=== PATIENT | female | born 1985 | race Caucasian/White ===

== ENCOUNTER 2020-03-23 19:32 | Inpatient (IN) | payer BC ==
--- NOTE | 2020-03-23 20:38 | HP ---
COWS - Scale Resting Pulse: 1= SC 81-100 Sweatin= Chills/Flushing Restless Observation: 1= Difficult to Sit Still Pupil Size: 0= Normal to Room Light Bone or Joint Aches: 2= Severe Diffuse Aches Runny Nose/ Eye Tearin= Nasal Congestion GI Upset > 30mins: 2= Nausea/Diarrhea Tremor Observation: 1= Tremor [place], Not Seen Yawning Observation: 1= 1-2x During Session Anxiety or Irritability: 1=Feels Anxious/Irritable Goose Flesh Skin: 0=Smooth Skin COWS Score: 11 CIWA Score - Admission Criteria OASAS Guidelines: Admission for Medically Managed Detox: Requires at least one of the followin. CIWA greater than 12 2. Seizures within the past 24 hours 3. Delirium tremens within the past 24 hours 4. Hallucinations within the past 24 hours 5. Acute intervention needed for co occurring medical disorder 6. Acute intervention needed for co occurring psychiatric disorder 7. Severe withdrawal that cannot be handled at a lower level of care (continued vomiting, continued diarrhea, abnormal vital signs) requiring intravenous medication and/or fluids 8. Admitting History and Physical - Admission Chief Complaint: I want to get off drugs. History Source: Patient Limitations to Obtaining History: No Limitations - Past Medical History Pulmonary: Yes: Asthma ...LMP: 09/21/19 (unsure of days.) ...: No Psych: Yes: Anxiety (on zanax 8mg daily.), Depression Musculoskeletal: Yes: Chronic low back pain - Past Surgical History Past Surgical History: Yes: None - Smoking History Smoking history: Current every day smoker Aproximately how many cigarettes per day: 20 - Alcohol/Substance Use Hx Alcohol Use: No History of Substance Use: reports: Cocaine, Heroin, Marijuana, Prescription Date of Last Use: 03/23/20 - Social History Usual Living Arrangement: Yes: Alone Do you think of yourself as: Straight/Heterosexual ADL: Independent Occupation: unemployed History of Recent Travel: No Admission ROS S - HPI Chief Complaint: I need help to get off drugs. Allergies/Adverse Reactions: Allergies Allergy/AdvReac Type Severity Reaction Status Date / Time No Known Allergies Allergy Verified 03/23/20 20:38 History of Present Illness: Patient is a 34 y/o female with history of Asthma, Back pain, Benzo, Heroin, Cannabis and cocaine use disorder. Presents to [facility] for heroin detox. 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 Started using Heroin since age 27, currently using up to 2 bundles daily IV. Last use was today. Also uses a couple of bumps of Cocaine daily, last use was today. Exam Limitations: No Limitations - Ebola screening Have you traveled outside of the country in the last 21 days: No Have you had contact with anyone from an Ebola affected area: No Have you been sick,other than usual withdrawal symptoms: No Do you have a fever: No - Review of Systems Constitutional: Chills, Night Sweats EENT: reports: Nose Congestion Respiratory: reports: No Symptoms reported Cardiac: reports: No Symptoms Reported GI: reports: No Symptoms Reported : reports: No Symptoms Reported Musculoskeletal: reports: No Symptoms Reported, Back Pain, Joint Pain Integumentary: reports: No Symptoms Reported Neuro: reports: No Symptoms reported Endocrine: reports: No Symptoms Reported Hematology: reports: No Symptoms Reported Psychiatric: reports: No Sypmtoms Reported, Agitated, Anxious Other Systems: Reviewed and Negative Patient History - Patient Medical History Hx Anemia: No Hx Asthma: Yes (uses Albuterol pump as needed.) Hx Cancer: No Hx Cardiac Disorders: No Hx Congestive Heart Failure: No Hx Hypertension: No Hx Hypercholesterolemia: No Hx Pacemaker: No HX Cerebrovascular Accident: No Hx Seizures: Yes (Last seizure was in January when she ran out of medications.) Hx Dementia: No Hx Diabetes: No Hx Gastrointestinal Disorders: No Hx Liver Disease: No Hx Genitourinary Disorders: No Hx Sexually Transmitted Disorders: No - Patient Surgical History Past Surgical History: No Hx Neurologic Surgery: No Hx Cataract Extraction: No Hx Cardiac Surgery: No Hx Lung Surgery: No Hx Breast Surgery: No Hx Breast Biopsy: No Hx Abdominal Surgery: No Hx Appendectomy: No Hx Cholecystectomy: No Hx Genitourinary Surgery: No Hx Section: No Hx Orthopedic Surgery: No Hx Hysterectomy: No Anesthesia Reaction: No - PPD History Previous Implant?: Yes Documented Results: Negative w/o proof Implanted On Prior R Admission?: Yes PPD to be Administered?: Yes - Reproductive History Patient is a Female of Child Bearing Age (11 -55 yrs old): Yes Last Menstrual Period: 09/21/19 (6 months ago.) Patient : No - Smoking Cessation Smoking history: Current every day smoker Have you smoked in the past 12 months: Yes Aproximately how many cigarettes per day: 20 Hx Chewing Tobacco Use: No Initiated information on smoking cessation: Yes 'Breaking Loose' booklet given: 03/23/20 - Substance & Tx. History Hx Alcohol Use: No Hx Substance Use: Yes Substance Use Type: Cocaine, Heroin Hx Substance Use Treatment: Yes (was in detox in [place] a year ago.) - Substances abused Alprazolam (Xanax) Substance route: Oral Frequency: Daily Amount used: 4-2mg tabs Age of first use: 28 Date of last use: 03/23/20 Cocaine Substance route: Injection Frequency: Daily Amount used: a couple of bumps Age of first use: 28 Date of last use: 03/23/20 Heroin Substance route: Inhalation Frequency: Daily Amount used: 2 bundles Age of first use: 28 Date of last use: 03/23/20 Admission Physical Exam [facility] - Physical General Appearance: Yes: Mild Distress, Tremorous, Irritable, Anxious HEENTM: Yes: Within Normal Limits Respiratory: Yes: Within Normal Limits Neck: Yes: Within Normal Limits Breast: Yes: Breast Exam Deferred Cardiology: Yes: Within Normal Limits Abdominal: Yes: Within Normal Limits Genitourinary: Yes: Within Normal Limits Back: Yes: Within Normal Limits Musculoskeletal: Yes: Back pain Extremities: Yes: Within Normal Limits, Normal Capillary Refill Neurological: Yes: Within Normal Limits, Fully Oriented, Alert Integumentary: Yes: Within Normal Limits Lymphatic: Yes: Within Normal Limits - Diagnostic (1) Opioid dependence with withdrawal Current Visit: Yes Status: Acute (2) Cocaine dependence Current Visit: Yes Status: Chronic (3) Nicotine dependence Current Visit: Yes Status: Chronic (4) Asthma Current Visit: Yes Status: Chronic (5) Chronic back pain Current Visit: Yes Status: Chronic Cleared for Admission [facility] - Detox or Rehab [facility] Level of Care: Medically Managed Detox Regimen/Protocol: Methadone Claeared for Rehab Admission: No Screened but not Admitted - Documentation of Visit Screened but not Admitted: No Breathalyzer - Breathalyzer Breathalyzer: 0 Urine Drug Screen - Test Device Lot number: [id number] Expiration date: 10/20/21 - Control Is test valid?: Yes - Results Drug screen NEGATIVE: No Urine drug screen results: THC-Marijuana, ROBERT-Cocaine, FEN-Fentanyl, MOP- Opiates, BZO-Benzodiazepines Inpatient Rehab Admission - Rehab Decision to Admit Inpatient rehab admission?: No
[2020-03-23] MEDS ORDERED: cloNIDine HCL 0.1 MG TABLET PO PRN (20:39)
[2020-03-23] MEDS ORDERED: hydrOXYzine PAMOATE 25 MG CAPSULE (FP) PO PRN (20:39)
[2020-03-23] MEDS ORDERED: IBUPROFEN 400 MG TABLET (FP) PO PRN (20:39)
[2020-03-23] MEDS ORDERED: NALOXONE HCL 0.4 MG/ML VIAL IM PRN (20:39)
[2020-03-23] MEDS ORDERED: BISMUTH SUBSALICYLATE 524 MG/30 ML UD PO PRN (20:39)
[2020-03-23] MEDS ORDERED: MAG HYDROX/AL HYDROX/SIMETH 30 ML UNIT-DOSE CUP PO PRN (20:39)
[2020-03-23] MEDS ORDERED: METHOCARBAMOL 500 MG TABLET PO PRN (20:39)
[2020-03-23] MEDS ORDERED: MAGNESIUM CITRATE 300 ML BOTTLE PO PRN (20:39)
[2020-03-23] MEDS ORDERED: NICOTINE POLACRILEX 2 MG GUM BUC PRN (20:39)
[2020-03-23] MEDS ORDERED: guaiFENesin 200 MG/10 ML 10 ML UNIT-DOSE CUPS PO PRN (20:39)
[2020-03-23] MEDS ORDERED: METHADONE HCL 10 MG TABLET (FOR DETOX USE ONLY) PO ONE (20:39)
[2020-03-23] MEDS ORDERED: MENTHOL/PHENOL 1 EACH UD MM PRN (20:39)
[2020-03-23] MEDS ORDERED: MAGNESIUM HYDROX 2400MG/30ML ORAL SUSPENSION 30 ML CUP PO PRN (20:39)
[2020-03-23] MEDS ORDERED: ONDANSETRON *ODT* 4 MG TABLET SL PRN (20:39)
[2020-03-23] MEDS ORDERED: ACETAMINOPHEN 325 MG TABLET (FP) PO PRN ×2 (20:39)
[2020-03-23 21:03] VITALS: BMI 17.2
[2020-03-23] MEDS ORDERED: ALBUTEROL SO4 HFA INHALER IH PRN (21:27)
[2020-03-23] MEDS ORDERED: THIAMINE HCL 100 MG TABLET (FP) PO SCH (22:00)
[2020-03-23] MEDS ORDERED: MELATONIN 5 MG TABLETS PO SCH (22:00)
[2020-03-24] MEDS ORDERED: METHADONE HCL 10 MG TABLET (FOR DETOX USE ONLY) ONE (08:46)
[2020-03-24] MEDS ORDERED: METHADONE HCL 5 MG TABLET (FOR DETOX USE ONLY) ONE (08:46)
[2020-03-24 09:24] VITALS: BP 107/74; PULSE 64; TEMP 97.8
[2020-03-24] MEDS ORDERED: diazePAM 5 MG TABLET PO PRN (09:54)
[2020-03-24] MEDS ORDERED: ALBUTEROL SO4 HFA INHALER IH PRN (09:55)
[2020-03-24] MEDS ORDERED: PRENATAL VITAMINS W/ FOLIC ACID TABLET (FP) PO SCH (10:00)
[2020-03-24] MEDS ORDERED: NICOTINE 7 MG/24 HOURS TOPICAL PATCH TD SCH (10:00)
[2020-03-24] MEDS ORDERED: METHADONE (DETOX) 20 MG, METHADONE (DETOX) 5 MG PO ONE (10:00)
[2020-03-24 10:58] LABS: HEMATOCRIT 39.4 % (32.4-45.2); HEMOGLOBIN 12.9 GM/dL (10.7-15.3); MCH 29.1 pg (25.7-33.7); MCHC 32.8 g/dl (32.0-36.0); MEAN CELL VOLUME 88.7 fl (80-96); MEAN PLT VOLUME 7.6 fl (7.5-11.1); PLATELET COUNT 260 K/MM3 (134-434); RBC 4.44 M/mm3 (3.60-5.2); RDW 14.4 % (11.6-15.6); WHITE BLOOD COUNT 6.2 K/mm3 (4.0-10.0)
[2020-03-24 11:17] LABS: ALBUMIN 3.6 g/dl (3.4-5.0); CALCIUM 8.9 mg/dL (8.5-10.1); POTASSIUM 4.3 mmol/L (3.5-5.1)
--- NOTE | 2020-03-24 11:20 | DS ---
[facility] Detox Discharge Summary Admission Date: 03/23/20 Discharge Date: 03/24/20 - History Present History: Cocaine Dependence, Opioid Dependence, Sedative Dependence Additional Comments: alert,oriented x 3 lung clear on auscultation bilaterally abdomen soft,no pain,no tenderness no swelling of extremities ambulation on the unit patient did not want to complete treatment,the high risks of relapsing explained,signed release against medical advice, the risks of leaving including seizure,permanent disability,and addressed,patient under stood advise to call 911 if not feeling well narcan nasal spray e prescription to patient's pharmacy Pertinent Past History: asthma nicotine dependence anxiety,depression,insomnia chronic low back pain - Physical Exam Results Vital Signs: Vital Signs Temperature 97.8 F 03/24/20 08:59 Pulse Rate 64 03/24/20 08:59 Respiratory Rate 18 03/24/20 08:59 Blood Pressure 107/74 03/24/20 08:59 O2 Sat by Pulse Oximetry (%) 99 03/24/20 06:32 Pertinent Admission Physical Exam Findings: withdrawal signs and symptom Laboratory Last Values WBC 6.2 K/mm3 (4.0-10.0) 03/24/20 08:45 RBC 4.44 M/mm3 (3.60-5.2) 03/24/20 08:45 Hgb 12.9 GM/dL (10.7-15.3) 03/24/20 08:45 Hct 39.4 % (32.4-45.2) 03/24/20 08:45 MCV 88.7 fl (80-96) 03/24/20 08:45 MCH 29.1 pg (25.7-33.7) 03/24/20 08:45 MCHC 32.8 g/dl (32.0-36.0) 03/24/20 08:45 RDW 14.4 % (11.6-15.6) 03/24/20 08:45 Plt Count 260 K/MM3 (134-434) 03/24/20 08:45 MPV 7.6 fl (7.5-11.1) 03/24/20 08:45 Sodium 142 mmol/L (136-145) 03/24/20 08:45 Potassium 4.3 mmol/L (3.5-5.1) 03/24/20 08:45 Chloride 108 mmol/L (98-107) H 09/10/20 08:45 Carbon Dioxide 28 mmol/L (21-32) 03/24/20 08:45 Anion Gap 6 MMOL/L (8-16) L 03/24/20 08:45 BUN 12.0 mg/dL (7-18) 03/24/20 08:45 Creatinine 0.7 mg/dL (0.55-1.3) 03/24/20 08:45 Est GFR (CKD-EPI)AfAm 129.19 03/24/20 08:45 Est GFR (CKD-EPI)NonAf 111.47 03/24/20 08:45 Random Glucose 101 mg/dL (74-106) 03/24/20 08:45 Calcium 8.9 mg/dL (8.5-10.1) 03/24/20 08:45 Total Bilirubin 1.1 mg/dL (0.2-1) H 03/24/20 08:45 AST 10 U/L (15-37) L 03/24/20 08:45 ALT 21 U/L (13-61) 03/24/20 08:45 Alkaline Phosphatase 54 U/L (45-117) 03/24/20 08:45 Total Protein 6.4 g/dl (6.4-8.2) 03/24/20 08:45 Albumin 3.6 g/dl (3.4-5.0) 03/24/20 08:45 POC Urine HCG, Qual Negative 03/23/20 20:17 Syphilis Serology Non-reactive (NONREACTIVE) 03/24/20 08:45 Vital Signs Temperature 97.8 F 03/24/20 08:59 Pulse Rate 64 03/24/20 08:59 Respiratory Rate 18 03/24/20 08:59 Blood Pressure 107/74 03/24/20 08:59 O2 Sat by Pulse Oximetry (%) 99 03/24/20 06:32 - Medication Discharge Medications: Ambulatory Orders Albuterol Sulfate [Albuterol Sulfate Hfa] 2 puff IH Q4HWA PRN 03/23/20 Alprazolam [Xanax] 2 mg PO BID 03/23/20 Zolpidem Tartrate [Ambien] 10 mg PO HS 03/23/20 Naloxone HCl [Narcan] 4 mg NS ASDIR #1 spray 09/10/20 - Diagnosis (1) Opioid dependence with withdrawal Status: Acute (2) Asthma Status: Chronic (3) Chronic back pain Status: Chronic (4) Cocaine dependence Status: Chronic (5) Nicotine dependence Status: Chronic (6) Insomnia secondary to depression with anxiety Status: Acute - AMA Did Patient Leave Against Medical Advice: Yes
--- NOTE | 2020-03-24 11:20 | PN ---
S CIWA - CIWA Score Nausea/Vomitin Muscle Tremors: 3 Anxiety: 3 Agitation: 3 Paroxysmal Sweats: 1-Minimal Palms Moist Orientation: 0-Oriented Tacttile Disturbances: 1-Very Mild Itch/Numbness Auditory Disturbances: 0-None Visual Disturbances: 0-None Headache: 2-Mild CIWA-Ar Total Score: 16 BHS COWS - Scale Resting Pulse: 0= [place] 80 or Below Sweatin= No chills or Flushing Restless Observation: 0= Sits Still Pupil Size: 1= Pupils >than Normal Bone or Joint Aches: 2= Severe Diffuse Aches Runny Nose/ Eye Tearin= Runny Nose/Eyes GI Upset > 30mins: 3= Vomiting/Diarrhea Tremor Observation of Outstretched Hands: 2= Slight Tremor Visible Yawning Observation: 1= 1-2x During Session Anxiety or Irritability: 2=Irritable/Anxious Goose Flesh Skin: 0=Smooth Skin COWS Score: 13 S Progress Note (SOAP) Subjective: alert,irritable,anxious,pain in the body and back,tremor,diarrhea,vomiting Objective: 03/24/20 16:44 Vital Signs Temperature 97.8 F 03/24/20 08:59 Pulse Rate 64 03/24/20 08:59 Respiratory Rate 18 03/24/20 08:59 Blood Pressure 107/74 03/24/20 08:59 O2 Sat by Pulse Oximetry (%) 99 03/24/20 06:32 03/24/20 16:44 Laboratory Last Values WBC 6.2 K/mm3 (4.0-10.0) 03/24/20 08:45 RBC 4.44 M/mm3 (3.60-5.2) 03/24/20 08:45 Hgb 12.9 GM/dL (10.7-15.3) 03/24/20 08:45 Hct 39.4 % (32.4-45.2) 03/24/20 08:45 MCV 88.7 fl (80-96) 03/24/20 08:45 MCH 29.1 pg (25.7-33.7) 03/24/20 08:45 MCHC 32.8 g/dl (32.0-36.0) 03/24/20 08:45 RDW 14.4 % (11.6-15.6) 03/24/20 08:45 Plt Count 260 K/MM3 (134-434) 03/24/20 08:45 MPV 7.6 fl (7.5-11.1) 03/24/20 08:45 Sodium 142 mmol/L (136-145) 03/24/20 08:45 Potassium 4.3 mmol/L (3.5-5.1) 03/24/20 08:45 Chloride 108 mmol/L (98-107) H 03/24/20 08:45 Carbon Dioxide 28 mmol/L (21-32) 03/24/20 08:45 Anion Gap 6 MMOL/L (8-16) L 03/24/20 08:45 BUN 12.0 mg/dL (7-18) 03/24/20 08:45 Creatinine 0.7 mg/dL (0.55-1.3) 03/24/20 08:45 Est GFR (CKD-EPI)AfAm 129.19 03/24/20 08:45 Est GFR (CKD-EPI)NonAf 111.47 03/24/20 08:45 Random Glucose 101 mg/dL (74-106) 03/24/20 08:45 Calcium 8.9 mg/dL (8.5-10.1) 03/24/20 08:45 Total Bilirubin 1.1 mg/dL (0.2-1) H 03/24/20 08:45 AST 10 U/L (15-37) L 03/24/20 08:45 ALT 21 U/L (13-61) 03/24/20 08:45 Alkaline Phosphatase 54 U/L (45-117) 03/24/20 08:45 Total Protein 6.4 g/dl (6.4-8.2) 03/24/20 08:45 Albumin 3.6 g/dl (3.4-5.0) 03/24/20 08:45 POC Urine HCG, Qual Negative 03/23/20 20:17 Syphilis Serology Non-reactive (NONREACTIVE) 03/24/20 08:45 Assessment: 03/24/20 16:45 withdrawal symptom Plan: continue detox methadone regimen,valuim 10 mgs po q 4 hrs prn for severe withdrawal for 72 hrs,close monitoring
[2020-03-24 11:23] LABS: BILIRUBIN,TOTAL 1.1 mg/dL (0.2-1); CREATININE 0.7 mg/dL (0.55-1.3); TOT PROT 6.4 g/dl (6.4-8.2)
--- NOTE | 2020-03-24 12:40 | EKG ---
Test Reason : Blood Pressure : / mmHG Vent. Rate : 075 BPM Atrial Rate : 075 BPM P-R Int : 140 ms QRS Dur : 096 ms QT Int : 408 ms P-R-T Axes : 076 083 073 degrees QTc Int : 455 ms NORMAL SINUS RHYTHM NORMAL ECG NO PREVIOUS ECGS AVAILABLE Confirmed by CRISTAL DOMINIQUE MD ([id number]) on 03/24/2020 12:39:59 PM Referred By: Ramon Otero Confirmed By:CRISTAL DOMINIQUE MD
[2020-03-25] MEDS ORDERED: METHADONE HCL 10 MG TABLET (FOR DETOX USE ONLY) PO ONE (10:00)
[2020-03-26] MEDS ORDERED: METHADONE (DETOX) 10 MG, METHADONE (DETOX) 5 MG PO ONE (10:00)
[2020-03-27] MEDS ORDERED: METHADONE HCL 10 MG TABLET (FOR DETOX USE ONLY) PO ONE (10:00)
[2020-03-28] MEDS ORDERED: METHADONE HCL 5 MG TABLET (FOR DETOX USE ONLY) PO ONE (06:00)
== END 2020-03-24 11:34 | disposition left against medical advice (07) | DRG 770 ==
LOC: YASAS 19:32 → Y3N 20:55
PROVIDERS: ADMIT Allergy & Immunology; ATTEND Allergy & Immunology
PROC: HZ2ZZZZ Detoxification Services for Substance Abuse Treatment (ICD-10-PCS; principal; 2020-03-23)
DX: F11.23 Opioid dependence with withdrawal (principal); F13.20 Sedative, hypnotic or anxiolytic dependence, uncomplicated; F14.20 Cocaine dependence, uncomplicated; F12.20 Cannabis dependence, uncomplicated; F17.210 Nicotine dependence, cigarettes, uncomplicated; F51.05 Insomnia due to other mental disorder; F41.9 Anxiety disorder, unspecified; F32.9 Major depressive disorder, single episode, unspecified; G40.909 Epilepsy, unspecified, not intractable, without status epilepticus; J45.909 Unspecified asthma, uncomplicated; M54.5 Low back pain; G89.29 Other chronic pain
CPT/HCPCS: 36415; 80053; 81025; 85027; 86780; 93005; 93010; U0003